=== PATIENT | female | born 1990 | race Caucasian/White ===

== ENCOUNTER 2017-04-02 01:31 | Emergency (ER) | payer BC, OTHER ==
[~2017-04-02 01:31] MED LIST: ARIP1TAB5; CEPH500C3; LAMO100
[2017-04-02 01:35] VITALS: BP 138/97; PULSE 125; RESP 16; TEMP 98.1; O2SAT 94
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
[2017-04-02] MEDS ORDERED: SODIUM CHLORIDE 0.9% FLUSH 10 ML FLUSH IVF PRN (02:30)
[2017-04-02] MEDS ORDERED: SODIUM CHLOR 0.9% 1000 ML INJ 1,000 ML IV ONE (02:30)
[2017-04-02 02:37] VITALS: O2SAT 98
[2017-04-02 02:42] LABS: AUTOMATED NEUTROPHIL # 8.7 TH/MM3 (1.8-7.7); BASOPHIL # 0.1 TH/MM3 (0-0.2); BASOPHIL % 0.4 % (0.0-2.0); EOSINOPHIL # 0.1 TH/MM3 (0-0.4); EOSINOPHIL % 0.9 % (0.0-4.0); HEMATOCRIT 37.8 % (35.0-46.0); HEMO FLAGS DIFF FINAL; LYMPH % 26.3 % (9.0-44.0); LYMPHOCYTE # 3.4 TH/MM3 (1.0-4.8); MEAN CORPUSCULAR HEMOGLOBIN 30.7 PG (27.0-34.0); MEAN CORPUSCULAR HGB CONC 35.2 % (32.0-36.0); MONO % 4.4 % (0.0-8.0); PLATELET COUNT 256 TH/MM3 (150-450); RED BLOOD COUNT 4.34 MIL/MM3 (4.00-5.30); RED CELL DISTRIBUTION WIDTH 13.2 % (11.6-17.2); WHITE BLOOD COUNT 12.7 TH/MM3 (4.0-11.0)
[2017-04-02 02:48] LABS: BLOOD, URINE NEG (NEG); GLUCOSE,URINE NEG (NEG); KETONE, URINE NEG (NEG); NITRITE,URINE NEG (NEG); URINE COLOR COLORLESS (YELLW/STRAW)
[2017-04-02 02:54] LABS: COMMENT (UR) CULT NOT INDICATED; CULTURE IF INDICATED CULT NOT INDICATED
[2017-04-02 02:55] LABS: AMPHETAMINE, URINE NEG (NEG); BARBITURATES, URINE NEG (NEG); COCAINE, URINE NEG (NEG)
[2017-04-02 02:57] LABS: ANION GAP 11 MEQ/L (5-15); BICARBONATE 21.7 MEQ/L (21.0-32.0); BLOOD UREA NITROGEN 10 MG/DL (7-18); CHLORIDE 112 MEQ/L (98-107); GLOMERULAR FILTRATION RATE 126 ML/MIN (>89); SODIUM (NA) 145 MEQ/L (136-145)
[2017-04-02 02:59] LABS: ACETAMINOPHEN LESS THAN 2.0 MCG/ML (10.0-30.0)
[2017-04-02 03:00] LABS: BETA HCG QUANT LESS THAN 1 MIU/ML (0-5)
[2017-04-02 04:22] VITALS: BP 109/60; PULSE 98; RESP 16; O2SAT 98
[2017-04-02] MEDS ORDERED: IBUPROFEN 600 MG TAB PO ONE (05:15)
[2017-04-02 06:49] VITALS: BP 105/64; PULSE 78; RESP 16; O2SAT 98
--- NOTE | 2017-04-02 15:27 | EKG ---
Date Performed: 04/02/2017 Time Performed: 02:07:24 PTAGE: 26 years EKG: Sinus rhythm MINIMAL VOLTAGE CRITERIA FOR LVH, CONSIDER NORMAL VARIANT BORDERLINE ECG PREVIOUS TRACING : 05/26/2006 23.37 DOCTOR: Fam Hurtado Interpretating Date/Time 04/02/2017 15:24:48
== END 2017-04-02 07:52 | disposition home or self-care (01) ==
LOC: NEPC 01:31
DX: F10.120 Alcohol abuse with intoxication, uncomplicated (principal); F31.9 Bipolar disorder, unspecified; F60.3 Borderline personality disorder; F41.8 Other specified anxiety disorders; Y90.7 Blood alcohol level of 200-239 mg/100 ml; Z79.899 Other long term (current) drug therapy
CPT/HCPCS: 80048; 80307; 81001; 84702; 85025; 93005; 96360; 96361; 99283; J7030